=== PATIENT | female | born 1990 | race Two or more races ===

== ENCOUNTER 2017-05-10 02:40 | Emergency (ER) | payer BC ==
[2017-05-10 02:51] VITALS: BP 130/83
[2017-05-10] MEDS ORDERED: Albuterol/Ipratropium 3.0-0.5 MG/3 ML Neb Soln NEB ONE (03:20)
[2017-05-10] MEDS ORDERED: predniSONE 20 MG Tab PO ONE (03:23)
--- NOTE | 2017-05-10 03:32 | EDM.PDOC ---
ED HPI GENERAL MEDICAL PROBLEM - General Chief Complaint: Respiratory Problem Stated Complaint: SOB/CHEST PAIN Time Seen by Provider: 05/10/17 02:55 Source of Information: Reports: Patient, RN Notes Reviewed History Limitations: Reports: No Limitations - History of Present Illness INITIAL COMMENTS - FREE TEXT/NARRATIVE: The patient states that she has had shortness of breath, wheezing, chest tightness, and a cough productive of clear mucus for approximately 5 months. Her symptoms are worse with exertion. No recent fever or vomiting. She states that her symptoms got worse around 21:00 tonight, prompting this ED visit. She states that she saw her PCP, Jemma Wallace, in January. She states that no tests were done, but that she was given an injection of steroids, which made her feel better for about 3 weeks. She states that she was not prescribed any medications at the time. After her symptoms recurred, she saw Ms. Wallace again in January. She states that a chest x-ray was done, which was normal. A peak flow test was performed, which was apparently good. She was prescribed Singulair and albuterol. She states that she took the singular nightly for about a month, but discontinued it, because it was not helping. She states that the albuterol seemed to help, but only if she took 4 or 5 puffs. She states that she talked to Ms. Wallace' nurse in late January, and was prescribed a five-day course of prednisone, which she states did help. She states that she underwent an in-home sleep study in March, which was reportedly normal. She then saw Dr. Yasmin Shah on 04/27/2017. She states that no tests were done, but that she was prescribed a Z-[place], which she states did not help. She then saw Dr. Shah again on , 05/07/2017. Again, no tests were done , but the patient was prescribed a Flovent MDI, 1 puff twice a day. She states that it is not helping. She states that she has been referred to a [facility] Press Operator in [place], but that she does not yet have an appointment. The patient states that she has smoked 1/2 a pack of cigarettes daily since she was 11 years old, but quit this past 05/05/2017. She is not exposed to secondhand smoke. She states that she used to smoke marijuana, but has not since she was 21 years old. She acknowledges that she smoked methamphetamine for about 6 months when she was 18 years old. Bilateral Chest Pain Score (Numeric/FACES): 3 - Related Data Allergies Allergy/AdvReac Type Severity Reaction Status Date / Time strawberry Allergy Rash Verified 05/10/17 02:47 Sulfa (Sulfonamide Allergy Cannot Verified 05/10/17 02:47 Antibiotics) Remember Home Meds: Home Meds Albuterol [IMW: Ventolin HFA] 1 - 2 puff INH ASDIRECTED PRN #1 mdi 05/10/17 [Rx] Fluticasone Propionate [Flovent HFA 110 MCG] 1 puff INH BID 05/10/17 [History] Inhaler, Assist Devices [Space Chamber Plus] 1 unit MC ASDIRECTED #1 spacer 03/19 [Rx] predniSONE [Prednisone] 20 mg PO WITHBREAKFAST #5 tablet 05/10/17 [Rx] Past Medical History [employer] History: Reports: Endocrine/Metabolic History: Reports: Obesity/BMI 30+ - Past Surgical History HEENT Surgical History: Reports: Oral Surgery ([place] teeth extraction) Social & Family History - Tobacco Use Smoking Status *Q: Former Smoker Years of Tobacco use: 15 Packs/Tins Daily: 0.5 Month Tobacco Last Used: Quit 05/05/2017 - Alcohol Use Alcohol Use History: Yes Alcohol Use Frequency: Rarely - Recreational Drug Use Recreational Drug Use: Yes Drug Use in Last 12 Months: No Recreational Drug Type: Reports: Marijuana/Hashish (last used when 21 years old) , Methamphetamine (smoked x 6 months when 18 years old) - Living Situation & Occupation Living situation: Reports: Single, with Significant Other (boyfriend + his daughter) Occupation: Employed ([employer]) ED ROS GENERAL - Review of Systems Review Of Systems: See Below Constitutional: Reports: No Symptoms. Denies: Fever HEENT: Reports: No Symptoms Respiratory: Reports: Shortness of Breath, Wheezing, Cough, Sputum (clear) Cardiovascular: Reports: No Symptoms. Denies: Orthopnea Endocrine: Reports: No Symptoms GI/Abdominal: Reports: No Symptoms : Reports: No Symptoms Musculoskeletal: Reports: No Symptoms Skin: Reports: No Symptoms Neurological: Reports: No Symptoms Psychiatric: Reports: No Symptoms Hematologic/Lymphatic: Reports: No Symptoms Immunologic: Reports: No Symptoms ED EXAM, GENERAL - Physical Exam Exam: See Below Exam Limited By: No Limitations General Appearance: Alert, WD/WN, No Apparent Distress Eye Exam: Bilateral Eye: Normal Inspection Ears: Normal External Exam, Hearing Grossly Normal Nose: Normal Inspection, No Blood Throat/Mouth: Normal Inspection, Normal Lips, Normal Voice, No Airway Compromise Head: Atraumatic, Normocephalic Neck: Normal Inspection, Full Range of Motion Respiratory/Chest: No Respiratory Distress, No Accessory Muscle Use, Decreased Breath Sounds, Wheezing (expiratory, throughout lung [place]), Prolonged Expiration. No: Crackles, Rhonchi Cardiovascular: Normal Peripheral Pulses, Regular Rate, Rhythm, No Gallop, No JVD, No Murmur, No Rub Peripheral Pulses: 4+: Radial (L), Radial (R) GI/Abdominal: Normal Bowel Sounds, Soft, Non-Tender, No Organomegaly, No Distention, No Abnormal Bruit, No Mass, Other (Obese) (Female) Exam: Deferred Rectal (Female) Exam: Deferred Back Exam: Normal Inspection, Full Range of Motion, NT Extremities: Normal Inspection, Normal Range of Motion, No Pedal Edema, Normal Capillary Refill Neurological: Alert, Oriented, Normal Cognition, No Motor/Sensory Deficits Psychiatric: Normal Affect Skin Exam: Warm, Dry, Intact, Normal Color, No Rash EKG INTERPRETATION EKG Date: 05/10/17 Time: 02:51 Rhythm: NSR Rate (Beats/Min): 92 [place]: Normal P-Wave: Present QRS: Normal ST-T: Normal QT: Normal Comparison: NA - No Prior EKG Course - Vital Signs Last Recorded V/S: Last Vital Signs Temp 36.2 C 05/10/17 02:48 Pulse 82 05/10/17 02:48 Resp 20 05/10/17 02:48 BP 130/83 05/10/17 02:48 Pulse Ox 94 L 05/10/17 04:26 - Orders/Labs/Meds Orders: Active Orders 24 hr Category Date Time Status EKG Documentation Completion [RC] STAT Care 05/10/17 02:59 Active RT Aerosol Therapy [RC] ASDIRECTED Care 05/10/17 03:23 Active RT Aerosol Therapy [RC] ASDIRECTED Care 05/10/17 04:00 Active RT Peak Flow Measurement [RC] ASDIRECTED Care 05/10/17 03:28 Active Chest 2V [CR] Stat Exams 05/10/17 03:19 Taken Labs: Laboratory Tests 05/10/17 05/10/17 Range/Units 03:40 03:40 WBC 8.17 (3.98-10.04) K/mm3 RBC 4.89 (3.98-5.22) M/mm3 Hgb 13.2 (11.2-15.7) gm/L Hct 40.9 (34.1-44.9) % MCV 83.6 (79.4-94.8) fl MCH 27.0 (25.6-32.2) pg MCHC 32.3 (32.2-35.5) g/dl RDW Std Deviation 43.2 (36.4-46.3) fL Plt Count 201 (182-369) K/mm3 MPV 11.8 (9.4-12.3) fl Neutrophils % (Manual) 60 (40-60) % Band Neutrophils % 0 (0-10) % Lymphocytes % (Manual) 34 (20-40) % Atypical Lymphs % 0 % Monocytes % (Manual) 5 (2-10) % Eosinophils % (Manual) 1 (0.7-5.8) % Basophils % (Manual) 0 L (0.1-1.2) Platelet Estimate Adequate RBC Morph Comment Normal Sodium 140 (136-145) mEq/L Potassium 4.4 (3.5-5.1) mEq/L Chloride 105 (98-107) mEq/L Carbon Dioxide 25 (21-32) mEq/L Anion Gap 14.4 (5-15) BUN 15 (7-18) mg/dL Creatinine 0.8 (0.55-1.02) mg/dL Est Cr Clr Drug Dosing 90.09 mL/min Estimated GFR (MDRD) > 60 (>60) mL/min BUN/Creatinine Ratio 18.8 H (14-18) Glucose 103 (74-106) mg/dL Calcium 8.8 (8.5-10.1) mg/dL Magnesium 2.1 (1.8-2.4) mg/dl Total Bilirubin 0.3 (0.2-1.0) mg/dL AST 19 (15-37) U/L ALT 42 (14-59) U/L Alkaline Phosphatase 49 (46-116) U/L Total Protein 7.2 (6.4-8.2) g/dl Albumin 3.3 L (3.4-5.0) g/dl Globulin 3.9 gm/dL Albumin/Globulin Ratio 0.9 L (1-2) Meds: Medications Discontinued Medications Generic Name Dose Route Start Last Admin Trade Name Mackenzie PRN Reason Stop Dose Admin Albuterol 2.5 mg 05/10/17 04:00 05/10/17 04:26 Proventil Neb Soln NEB 05/10/17 04:01 2.5 mg ONETIME ONE Administration Albuterol/Ipratropium 3 ml 05/10/17 03:20 05/10/17 03:37 Duoneb 3.0-0.5 Mg/3 Ml NEB 05/10/17 03:21 3 ml ONETIME ONE Administration Prednisone 60 mg 05/10/17 03:23 05/10/17 04:01 Prednisone PO 05/10/17 03:24 60 mg ONETIME ONE Administration - Re-Assessments/Exams Free Text/Narrative Re-Assessment/Exam: 05/10/17 03:29 Based on the patient's history and physical examination, I suspect that she has asthma that has been kept active because of smoking up until last week. Ultimately, the diagnosis of asthma is made by a pulmonary function test, not blood work, imaging studies, or peak flow measurements, however, for [facility] [place] purposes, I am going to check some blood work, a chest x-ray, and treat her for asthma with a DuoNeb and prednisone. I will give additional albuterol, if needed. I have asked the respiratory therapist to educate the patient on the use of a peak flow meter, and give her one, although I'm not too interested in her peak flow measurements [facility] [place], as there is a learning curve for its proper use. Presuming the patient's blood work and chest x-ray are unremarkable, and the patient's symptoms improve with neb treatments and prednisone, I expect to discharge her home with a prescription for an albuterol MDI, spacer chamber, and prednisone. 05/10/17 03:59 Two-view chest radiograph appears to be grossly normal. Cardiac silhouette is within normal limits. No pulmonary vascular congestion. No pleural effusions. No focal infiltrate. No pneumothorax. Thoracic scoliosis incidentally noted. Formal read per the Radiologist pending. 05/10/17 03:59 The patient states that her breathing is substantially better following a DuoNeb. She rates her breathing difficulty now at a "3", down from a "7", stating that her breathing feels better now than it has in months. On auscultation, she still has some faint wheezing, although there is significant improvement. I will order an albuterol neb treatment. 05/10/17 04:49 The patient states that she feels even better following the albuterol neb. Her lungs are virtually entirely clear at this point. I will discharge her home with the peak flow meter, and I will e-prescribe an albuterol MDI, spacer chamber, and a five-day course of prednisone. Departure - Departure Time of Disposition: 04:51 Disposition: Home, Self-Care 01 Condition: Good Clinical Impression: Status asthmaticus - Discharge Information Prescriptions: Albuterol [IMW: Ventolin HFA] 1 - 2 puff INH ASDIRECTED PRN #1 mdi PRN Reason: Wheezing Inhaler, Assist Devices [Space Chamber Plus] 1 unit MC ASDIRECTED #1 spacer predniSONE [Prednisone] 20 mg PO WITHBREAKFAST #5 tablet Instructions: Asthma, Adult, Asthma Attack Prevention Referrals: Jemma Wallace PA [Physician [employer] Helper] - Yasmin Shah DO [Physician] - Forms: ED Department Discharge Additional Instructions: You were seen in the emergency room for shortness of breath with wheezing and cough for the past 5 months. Workup in the ER included blood work and a chest x-ray. Your symptoms substantially improved following a DuoNeb, an albuterol neb, and oral prednisone. Clinically, you MOST LIKELY have asthma, although the actual diagnosis is made by pulmonary function tests. Take 1-2 puffs of albuterol as needed for shortness of breath with wheezing, with or without cough. You may use the albuterol as often as needed to relieve your shortness of breath , however, if you require albuterol more often than every 4 hours, you need to be seen by a doctor. If there is any doubt that your symptoms are due to asthma, use your peak flow meter - if your reading is low, your shortness of breath is due to an asthma exacerbation. If your reading is normal, your shortness of breath is not due to an asthma exacerbation, and you should not use albuterol. Take one tablet of prednisone each morning, with breakfast, as prescribed. Once your breathing feels all better, you may resume using the Flovent inhaler, one puff twice a day. Use the spacer chamber for all inhaler doses. We recommend that you check your peak flow 2-3 times a week. If you find yourself in the yellow zone, despite feeling fine, contact your doctor, as this may mean that you are going to get an asthma exacerbation. It is IMPERATIVE that you not resume cigarette smoking, and that you avoid all second-hand smoke. Follow-up with the Cellophane [employer] Operator when an appointment can be made. If any other problems, please do not hesitate to return to the ER. - My Orders Last 24 Hours: My Active Orders 05/10/17 02:59 EKG Documentation Completion [RC] STAT 05/10/17 03:19 Chest 2V [CR] Stat 05/10/17 03:23 RT Aerosol Therapy [RC] ASDIRECTED 05/10/17 03:28 RT Peak Flow Measurement [RC] ASDIRECTED 05/10/17 04:00 RT Aerosol Therapy [RC] ASDIRECTED - Assessment/Plan Last 24 Hours: My Active Orders 05/10/17 02:59 EKG Documentation Completion [RC] STAT 05/10/17 03:19 Chest 2V [CR] Stat 05/10/17 03:23 RT Aerosol Therapy [RC] ASDIRECTED 05/10/17 03:28 RT Peak Flow Measurement [RC] ASDIRECTED 05/10/17 04:00 RT Aerosol Therapy [RC] ASDIRECTED
[2017-05-10] MEDS ORDERED: Albuterol 0.083% 2.5 MG/3 ML Neb Soln NEB ONE (04:00)
--- NOTE | 2017-05-11 10:25 | CR ---
Chest: Two views of the chest were obtained. Comparison: Previous chest x-ray of 01/22/17. Heart size and mediastinum are within normal limits. Lungs are clear. Bony structures appear within normal limits for the patient's age. Impression: 1. Nothing acute is identified on two-view chest x-ray. Diagnostic code #1
== END 2017-05-10 05:30 | disposition home or self-care (01) ==
LOC: JD.ED 02:40
DX: J45.902 Unspecified asthma with status asthmaticus (principal); E66.9 Obesity, unspecified; Z88.2 Allergy status to sulfonamides; Z87.891 Personal history of nicotine dependence; Z68.42 Body mass index [BMI] 45.0-49.9, adult; Z91.018 Allergy to other foods
CPT/HCPCS: 36415; 71020; 80053; 83735; 85025; 93005; 94640; 99285; A9270; 93010